=== PATIENT | male | born 1975 | race Caucasian/White ===

== ENCOUNTER → 2023-08-08 | Emergency (ER) | payer BC ==
[~2023-08-08] MED LIST: AZITHROMYCIN 250 MG TAB ONE
--- OUTSIDE RECORDS SUMMARY | 2023-08-08 22:07 | XMS REPORT | Continuity of Care Document ---
Author Name Unknown Address [address] [facility] [address] [place] [address] [facility] thconnect Address [address] [facility] [address] [place] [address] Care Team Providers Care Associate Professor Of Musicology Name Role Phone Jose Angel Cheema Attending Clinician [facility] Physician, No Primary or Family Admitting Clinic darrion Unavailable Payers Payer Name Policy Type Policy Number Effective Date Expirati on Date Source Allergies, Adverse Reactions, Alerts Allergy Name Allergy Type Status Severity Reaction(s) Onset Date Inactive Date Treating Clinician Comments Source [place]al[place] ne DA Active SV HIVES 03-17 00:00: 00 [facility] PCN DA Active SV HIVES 03-17 00:00: 00 [facility] Encounters Start Date/Time End Date/Time Encounter Type Admission Type Attending Clinicians Care Facility Care Department Encounter ID Source 2022-03-17 13:01:00 2022-03-17 14:51:00 Emergency EM Jose Angel Cheema [facility] ERLINDA [id number] 90 [facility] Results Test Description Test Time Test Comments Results Resul t Comments Source - XR HAND 3 + V LT 2022-03-17 13:28:00 [facility]: SHEA PIEDRA : 1975 Sex: M FAX: Truong Bridges NP [phone] [facility]: St: REG Patient Name: SHEA PIEDRA Unit No: [id number] EXAMS: CPT CODE: [id number] XR HAND 3 + [place] [id number] Left hand 3 views INDICATION: Trauma, pain LOCATION: T18 Nondisplaced slightly comminuted transverse fracture across the distal phalanx of the little finger. No radiopaque foreign body in soft tissues. Remainder of left hand unremarkable. at 1328 Reported and signed by: Bakari Goel D.O. CC: Truong Horner NP Dictated Date/Time: 03/17/2022 (1328)Technologist: Stephy Portillo Transcribed Date/Time: 03/17/2022 (1328) By: Ashli Orig Print D/T: S: 03/17/2022 (0533) [facility] NAME: SHEA PIEDRA [address] [place] [address] PHYS: [place] - Truong Horner [place], [place] [address] : 1975 AGE: 47 SEX: M LOC: [place] PHONE #: [phone] EXAM DATE: 03/17/2022 STATUS: REG ER FAX #: [phone] RAD NO: DC Dt: PAGE 1 Signed Report Notes Date/Time Note Provider Source 2022-03-17 14:03:00 [id number]:03:00 [facility] ([facility])emergency provider reportreport#:[id number] report status: signeddate:03/17/22 time: 1403 patient: shea piedra unit #: [id number]#: [id number] room/bed:age: 47 sex: m pcp phys: no primary or family physicianservice dt: 03/17/22 author: truong horner building rental manager * all edits or amendments must be made on the electronic/computer document * truong horner 03/17/22 1403:hpi-hand prob/inj free text hpi notesfree text hpi notespatient is a 47-year-old male that comes to the emergency room with chief complaint of left small finger injury. patient states he smashed it in a door of a gun safely but attempting to move the safe. reports laceration. patient states he think it is broken as well. tetanus shot up-to-date. generalconfirmed patient yespatient type new patientinitial greet date/time 03/17/22 1305 provider in triagehpi chief complaint injury/mvcpe general/const no acute distress presentationchief complaint finger injury lhx obtained from patientonset occurred just prior to arrivalsymptom duration since onsetprogression since onset unchangedcontext of onset home injurycaused by crushing injurytiming of trauma date of trauma 03/17/22location: left hand fingerquality painfulseverity: current pain level 7 out of 10associated withreports: painful extremity. exacerbated by palpationrelieved by nothing contextimmunization status up to date tetanusrecent healthcare no recent doctor visit, no recent hospitalizationsimilar sx previous no review of systems ros statementsall systems rev neg except as marked. basic review of systemsbasic ros eyes: no redness, ent: no sore throat, resp: no sob, cv: no chest pain, gi: no abd pain/vomiting, gu: no dysuria/frequency, hem: no bleeding/bruising,psych: nl thought content focused review of systemsconstitutionaldenies: chills, fatigue, fever. musculoskeletalreports: extremity pain. denies: neck pain. skinreports: laceration. denies: erythema. neurologicdenies: bladder dysfunction, bowel dysfunction, headache. past medical history - adultstated complaint cut finger bad bleedingallergiescoded allergies:mesalamine (from asacol) (severe, hives 03/17/22)uncoded allergies:pcn (severe, hives 03/17/22) calculated suicide risk (nurs) no riskreview of nursing notes unavailable at this timept reports no significant: past medical history, past surgical historysmoking status for patients 13 years old or older: unknown,if ever smoked physical exam vital signsvital signsfirst documented: result date time pulse ox 98 03/17 1305 b/p 157/97 03/17 1305 b/p mean 117 03/17 1305 o2 delivery room air 03/17 1305 temp 98.0 03/17 1305 pulse 108 03/17 1305 resp 18 03/17 1305 last documented: result date time pulse ox 100 03/17 1450 b/p 140/80 03/17 1450 b/p mean 100 03/17 1450 pulse 93 03/17 1450 resp 17 03/17 1450 o2 delivery room air 03/17 1305 temp 98.0 03/17 1305 review of vital signs reviewed basic physical exambasic pe head: atraumatic/nc, eyes: perrl, conj clear, ent: membranes moist, neck: supple, resp: no resp distress, cv: reg rate rhythm, abd: soft/non-tender, low ext: no gross abnl, skin: no rashes, warm/dry, neuro: alert oriented, neuro: gross movement nl, psych: nl thought content focused pegeneral/const general/const awake, alert appearance/presentation uncomfortable. ms wrist/hand wrist/hand no erythema, neurologic intact, vascular intact finger exam #1 finger name (l edison), tenderness present. interpretation diagnostics lab results interpretation imaging statementradiographic studies reviewed and considered in the medical decision-making. re-evaluation mdm free text mdm notesfree text mdm notespatient declined ancef injection, states he is scared of needles. gave keflex instead. patient also declined sutures. applied a xeroform dressing and a finger splint. will discharge with follow-up to hand. will discharge with painmedicine and antibiotics. all questions answered. return precautions given. patient agrees to plan of care. ed coursemedication(s) orderedmedication(s) ordered:anti-infective agents sig/avery start time last medication dose route stop time status admin cephalexin 500 mg x1ed sta 03/17 1348 dc 03/17 po 03/17 1349 1353 cefazolin sodium 1 gm x1ed sta 03/17 1305 dcd sterile water 2.5 ml im 03/17 1534 local anesthetics (parenteral) sig/avery start time last medication dose route stop time status admin lidocaine/epinephrine 10 ml once one 03/17 1315 dc 03/17 i-dermal 03/17 1316 1353 patient discharge departure vital signs/conditionvital signsfirst documented: result date time pulse ox 98 03/17 1305 b/p 157/97 03/17 1305 b/p mean 117 03/17 1305 o2 delivery room air 03/17 1305 temp 98.0 03/17 1305 pulse 108 03/17 1305 resp 18 03/17 1305 last documented: result date time pulse ox 100 03/17 1450 b/p 140/80 03/17 1450 b/p mean 100 03/17 1450 pulse 93 03/17 1450 resp 17 03/17 1450 o2 delivery room air 03/17 1305 temp 98.0 03/17 1305 all vital signs available at the time of this entry have been reviewed. clinical impressionclinical impressionprimary impression: finger fracturesecondary impressions: finger laceration disposition decisiondischarge )( discharged to home yes )( time 1438 )( date 03/17/22 discharge/care plancounseled regarding diagnosis, imaging studies, prescriptions, need for follow-up, when to return to ed(auto) prescriptionscurrent visit scriptstramadol (ultram) 50 mg po q6h prn prn acute pain tramadol (ultram) 50 mg po q6h prn prn acute pain #15 tabs cephalexin (keflex) 500 mg po q6h 10 days #40 caps patient instructions ed fracture, finger, opendeparture formswork/school excuse variable discharge notei have spoken with the patient and/or caregivers. i have explained the patient'scondition, diagnoses and treatment plan based on the information available to meat this time. i have answered the patient's and/or caregiver's questions and addressed any concerns. the patient and/or caregivers have as good an understanding of the patient's diagnosis, condition and treatment plan as can beexpected at this point. the vital signs have been stable. the patient's condition is stable and appropriate for discharge from the emergency department. the patient will pursue further outpatient evaluation with the primary care physician or other designated or consulting physician as outlined in the discharge instructions. the patient and/or caregivers are agreeable to this planof care and follow-up instructions have been explained in detail. the patient and/or caregivers have received these instructions in written format and have expressed an understanding of the discharge instructions. the patient and/or caregivers are aware that any significant change in condition or worsening of symptoms should prompt an immediate return to this or the closest emergency department or a call to 911. jose angel cheema 03/22/22 0022:re-evaluation mdm free text mdm notesfree text mdm notes pt seen and eval with midlevelagree with chart as documented unless noted otherwise by mept well appearing, non toxictaking po and ambulatory in edstable for dispo home with close f/upt agreeable with plan patient discharge departure discharge/care planreferralsprovider referral: angelique alcaraz md address: [address] [place] [address] [address] [place] [address] supervising physician note midlv/doc saw pt 2the pa/building rental manager has seen the patient and i have performed this visit along with the involvement of the pa/building rental manager. i agree with the pa/emd special education teacher findings and plan. i have performed all aspects of mdm as documented including: evaluation of the patient/patient's condition(s), review and analysis of available data, and determinationof risk of patient management decisions. electronically signed by truong horner np on 03/17/22 at 1454electronically signed by jose angel cheema do on 03/22/22 at 0022rpt #:[id number] of reportSaint [facility] department [id number]:03:00B.[id number] ilable for patient [id number]:54:18 [facility] 2022-03-17 13:06:00 [id number]:06:00 [facility] ([facility])emergency provider reportreport#:[id number] report status: signeddate:03/17/22 time: 1306 patient: shea piedra unit #: [id number]#: [id number] room/bed:age: 47 sex: m pcp phys: no primary or family physicianservice dt: 03/17/22 author: truong horner building rental manager * all edits or amendments must be made on the electronic/computer document * provider in triage - adult provider in triageinitial greet date/time 03/17/22 1305 greet notei have greeted and performed a focused rapid initial assessment of this patient.a comprehensive ed assessment and evaluation of the patient, analysis of all test results, and completion of the medical decision-making process will be conducted by additional ed providers. hpi chief complaint injury/mvcrosdenies: fever, chest pain. pe general/const no acute distress mse not completethe medical screening exam is not complete. further evaluation and/or treatment is required. the patient will be re-directed to the emergency department. pmh-provider in triagestated complaint cut finger bad bleedingallergiescoded allergies:mesalamine (from asacol) (severe, hives 03/17/22)uncoded allergies:pcn (severe, hives 03/17/22) home medicationsreported medicationsno known home medications electronically signed by truong horner np on 03/17/22 at 1403rpt #:[id number] of reportEDEmerwadley regional medical centercy department [id number]:06:00B.[id number] ilable for patient [id number]:03:21 [facility]
--- NOTE | 2023-08-08 22:49 | ER ---
Nurse's Notes [facility] Name: Yakov Coleman Age: 48 yrs Sex: Male : 1975 Arrival Date: 08/08/2023 Time: 22:02 Bed IW1 Private MD: Diagnosis: Acute serous otitis media, bilateral Presentation: 08/08 22:38 Chief complaint: Patient states: pt reports vertigo started last night, got better, but km8 still having sinus congestion and MANN; denies fever/chills. Coronavirus screen: Client denies travel out of the [place] in the last 14 days. Ebola Screen: No symptoms or risks identified at this time. Initial Sepsis Screen: Does the patient meet any 2 criteria? No. Patient's initial sepsis screen is negative. Does the patient have a suspected source of infection? No. Patient's initial sepsis screen is negative. Risk Assessment: Do you want to hurt yourself or someone else? Patient reports no desire to harm self or others. Onset of symptoms was August 07, 2023. 22:38 Method Of Arrival: Ambulatory km8 22:38 Acuity: JESSICA 4 km8 Triage Assessment: 22:41 General: Appears in no apparent distress. comfortable, Behavior is calm, cooperative, km8 appropriate for age. Pain: Complains of pain in MANN and sinus congestion Pain currently is 3 out of 10 on a pain scale. EENT: Reports nasal congestion. Neuro: Level of Consciousness is awake, alert, obeys commands, Oriented to person, place, time, situation, Reports headache. Cardiovascular: Denies chest pain, shortness of breath, Capillary refill < 3 seconds Patient's skin is warm and dry. Respiratory: Airway is patent Respiratory effort is even, unlabored, Respiratory pattern is regular, symmetrical, Breath sounds are clear bilaterally. GI: No signs and/or symptoms were reported involving the gastrointestinal system. : No signs and/or symptoms were reported regarding the genitourinary system. Derm: Skin is intact, is healthy with good turgor, Skin is dry, Skin is pink, warm \T\ dry. normal, Skin temperature is warm. Musculoskeletal: No signs and/or symptoms reported regarding the musculoskeletal system. Circulation, motion, and sensation intact. Range of motion: intact in all extremities. Historical: - Allergies: 22:41 Aspirin; km8 22:41 PENICILLINS; km8 - Home Meds: 22:41 None [Active]; km8 - PMHx: 22:41 None; km8 - PSHx: 22:41 back surgery; right ankle; km8 - Immunization history:: Client reports having NOT received the Covid vaccine. Flu vaccine is not up to date. - Social history:: Smoking status: Patient reports the use of cigarette tobacco products, denies chronic smoking, but will smoke occasionally, Patient uses alcohol, only on a social basis. Patient/guardian denies using street drugs. Screenin:43 [facility] ED Fall Risk Assessment (Adult) History of falling in the last 3 months, km8 including since admission No falls in past 3 months (0 pts) Confusion or Disorientation No (0 pts) Intoxicated or Sedated No (0 pts) Impaired Gait No (0 pts) Mobility Assist Device Used No (0 pt) Altered Elimination No (0 pt) Score/Fall Risk Level 0 - 2 = Low Risk Oriented to surroundings, Maintained a safe environment, Educated pt \T\ family on fall prevention, incl call for assistance when getting out of bed, Assessed \T\ reinforced patient's understanding of fall precautions. Abuse screen: Denies threats or abuse. Denies injuries from another. Nutritional screening: No deficits noted. Tuberculosis screening: No symptoms or risk factors identified. Assessment: 22:45 General: see triage notes/assessment. km8 Vital Signs: 22:38 BP 144 / 93; Pulse 73; Resp 16; Temp 98.1(O); Pulse Ox 100% on R/A; Weight 95.25 kg km8 (R); Height 6 ft. 0 in. (R); Pain 3/10; 22:38 Body Mass Index 28.48 (95.25 kg, 182.88 cm) km8 22:38 Pain Scale: Adult km8 ED Course: 22:30 Patient arrived in ED. km8 22:30 Raheel Rios MD is Attending Physician. ec2 22:41 Triage completed. km8 22:41 Arm band placed on right wrist. km8 22:43 Patient has correct armband on for positive identification. km8 22:43 No provider procedures requiring assistance completed. Patient maintains SpO2 km8 saturation greater than 95% on room air. 22:46 Patient did not have IV access during this emergency room visit. km8 23:00 Provided Education on: d/c teaching. km8 Administered Medications: 22:59 Drug: AZITHromycin PO 500 mg PO once Route: PO; km8 22:59 Follow up: Response: Medication administered at discharge. km8 Medication: 22:43 VIS not applicable for this client. km8 Outcome: 22:49 Discharge ordered by . ec2 23:00 Discharged to home ambulatory, km8 23:00 Condition: good 23:00 Discharge instructions given to patient, Instructed on discharge instructions, follow up and referral plans. medication usage, Demonstrated understanding of instructions, follow-up care, medications, Prescriptions given X 1, 23:00 Patient left the ED. km8 Signatures: Raheel Rios MD MD 2 Alanis Sierra RN RN km8 Corrections: (The following items were deleted from the chart) 22:42 22:41 Allergies: No Known Allergies; km8 km8 22:42 22:41 PSHx: None; km8 km8
--- NOTE | 2023-08-08 22:49 | EDPHYS ---
Physician Documentation [facility] Name: Yakov Coleman Age: 48 yrs Sex: Male : 1975 Arrival Date: 08/08/2023 Time: 22:02 Bed IW1 Private MD: ED Physician Raheel Rios HPI: 08/08 22:50 This 48 yrs old Male presents to ER via Ambulatory with complaints of ec2 Congestion, Cough, Vertigo, Headache. 22:50 Patient arrives today for evaluation of cough and cold symptoms as well as vertigo. ec2 Patient reports that he has history of ear infections as well as vertigo. 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 States that the vertigo has since resolved, states that he has congestion, denies ear pain. Denies any difficulty breathing, denies fevers or chills or nausea or vomiting.. Historical: - Allergies: 22:41 Aspirin; km8 22:41 PENICILLINS; km8 - Home Meds: 22:41 None [Active]; km8 - PMHx: 22:41 None; km8 - PSHx: 22:41 back surgery; right ankle; km8 - Immunization history:: Client reports having NOT received the Covid vaccine. Flu vaccine is not up to date. - Social history:: Smoking status: Patient reports the use of cigarette tobacco products, denies chronic smoking, but will smoke occasionally, Patient uses alcohol, only on a social basis. Patient/guardian denies using street drugs. ROS: 22:51 Constitutional: as per hpi ec2 Exam: 22:51 Constitutional: GEN: NAD Head: atraumatic Eyes: EOMI Ears: External ears are normal. ec2 Bilateral TMs with serous fluid noted, erythema along the membrane noted as well. CV: regular rate LUNGS: no respiratory distress ABD: non-distended SKIN: no evidence of rashes MSK: no evidence of trauma NEURO: moves all extremities equally Vital Signs: 22:38 BP 144 / 93; Pulse 73; Resp 16; Temp 98.1(O); Pulse Ox 100% on R/A; Weight 95.25 kg km8 (R); Height 6 ft. 0 in. (R); Pain 3/10; 22:38 Body Mass Index 28.48 (95.25 kg, 182.88 cm) [facility] 22:38 Pain Scale: Adult [facility] MDM: 22:30 Patient medically screened. ec2 22:51 Data reviewed: vital signs. ED course: Patient arrives today due to concern for vertigo ec2 and URI symptoms. Examination remarkable for otitis media. Will start on antibiotics, have him follow-up with a primary care doctor. Consider viral swabs as well however this would not be management changing. Additionally patient is systemically well-appearing with reassuring vital signs, do not feel lab work such as CBC or BMP would be beneficial in this setting.. Administered Medications: 22:59 Drug: AZITHromycin PO 500 mg PO once Route: PO; [facility] 22:59 Follow up: Response: Medication administered at discharge. [facility] Disposition Summary: 08/08/23 22:49 Discharge Ordered Condition: Stable ec2 Diagnosis - Acute serous otitis media, bilateral ec2 Followup: ec2 - With: Private Physician - When: - Reason: Recheck today's complaints Discharge Instructions: - Discharge Summary Sheet ec2 - Otitis Media, Adult, Qwkg-[id number] ec2 - Form - Return To Work [facility] Forms: - Medication Reconciliation Form ec2 - Thank You Letter ec2 - Antibiotic Education ec2 - Prescription Opioid Use ec2 - Patient Portal Instructions ec2 - Leadership Thank You Letter ec2 Prescriptions: - azithromycin 250 mg Oral tablet - take 1 tablet ORAL route once daily for 4 days; 4 tablet; Refills: 0, Product ec2 Selection Permitted Signatures: Raheel Rios MD MD ec2 Alanis Sierra RN RN [facility] Corrections: (The following items were deleted from the chart) 22:42 22:41 Allergies: No Known Allergies; [place] [id number] 22:42 22:41 PSHx: None; [place] [id number]
[2023-08-09 05:46] VITALS: BP 144/93; TEMP 98.1; O2SAT 100
== END ==
LOC: ER 22:02
DX: H65.03 Acute serous otitis media, bilateral (principal); Z88.6 Allergy status to analgesic agent; Z88.0 Allergy status to penicillin

== ENCOUNTER 2023-12-04 10:23 | Emergency (ER) | payer BC ==
--- OUTSIDE RECORDS SUMMARY | 2023-12-04 10:25 | XMS REPORT | Continuity of Care Document ---
Author Name Unknown Address [address] [place] [address] [facility] thconnect Address [address] [place] [address] Care Team Providers Care Cigarette And Filter Chief Inspector Name Role Phone Jose Angel Cheema Attending Clinician [facility] Physician, No Primary or Family Admitting Clinic darrion Unavailable Payers Payer Name Policy Type Policy Number Effective Date Expirati on Date Source Allergies, Adverse Reactions, Alerts Allergy Name Allergy Type Status Severity Reaction(s) Onset Date Inactive Date Treating Clinician Comments Source [place] ne DA Active SV HIVES 03-17 00:00: 00 [facility] PCN DA Active SV HIVES 03-17 00:00: 00 [facility] Encounters Start Date/Time End Date/Time Encounter Type Admission Type Attending Clinicians Care Facility Care Department Encounter ID Source 2022-03-17 13:01:00 2022-03-17 14:51:00 Emergency EM Jose Angel Cheema [facility] ERLINDA [id number] 90 [facility] Results Test Description Test Time Test Comments Results Resul t Comments Source - XR HAND 3 + V LT 2022-03-17 13:28:[address] [facility]: SHEA PIEDRA : 1975 Sex: M FAX: Truong Bridges NP [phone] [place]: St: REG Patient Name: SHEA PIEDRA Unit No: [id number] EXAMS: CPT CODE: [id number] XR HAND 3 + V LT [id number] Left hand 3 views INDICATION: Trauma, pain [...] By: Ashli Orig Print D/T: S: 03/17/2022 ([id number]) [facility] [place] NAME: SHEA PIEDRA [address] [place] [address] PHYS: [place] - Truong Horner [place], [place] [address] : 1975 AGE: 47 SEX: M LOC: [place] PHONE #: [phone] EXAM DATE: 03/17/2022 STATUS: REG ER FAX #: [phone] RAD NO: DC Dt: PAGE 1 Signed Report Notes Date/Time Note Provider Source 2022-03-17 14:03:00 [id number]:03:00 [facility]emergency provider reportreport#:[id number] report status: signeddate:03/17/22 time: 1403 patient: shea piedra unit #: [id number]#: [id number] room/bed:age: 47 sex: m pcp phys: no primary or family physicianservice dt: 03/17/22 author: truong horner hospice office coordinator * all edits or amendments must be [...] discharge/care planreferralsprovider referral: angelique alcaraz md address: [address] [place] [address] [address] [place] [address] supervising physician note midlv/doc saw pt 2the pa/hospice office coordinator has seen the patient and i have performed this visit along with the involvement of the pa/hospice office coordinator. i agree with the pa/dealer development manager findings and plan. i have performed all aspects of mdm as documented including: evaluation of the patient/patient's condition(s), review and analysis of available data, and determinationof risk of patient management decisions. electronically signed by truong horner np on 03/17/22 at 1454electronically signed by jose angel cheema do on 03/22/22 at 0022rpt #:[id number] of [facility] [id number]:03:00B.[id number] ilable for patient [id number]:54:18 [facility] 2022-03-17 13:06:00 [id number]:06:00 [facility]emergency provider reportreport#:[id number] report status: signeddate:03/17/22 time: 1306 patient: shea piedra unit #: [id number]#: [id number] room/bed:age: 47 sex: m pcp phys: no primary or family physicianservice dt: 03/17/22 author: truong horner hospice office coordinator * all edits or amendments must be [...] truong horner np on 03/17/22 at 1403rpt #:[id number] of reportEDEmerfive rivers medical centercy department [id number]:06:00B.[id number] ilable for patient [id number]:03:21 [facility]
[2023-12-04] MEDS ORDERED: NA CHLORIDE 0.9% 1,000 ML ONE (10:47)
[2023-12-04] MEDS ORDERED: MAGNESIUM SULFATE 1 gm IVPB 1 GM/100 ML BAG IV ONE (10:47)
[2023-12-04 11:03] LABS: Absolute Basophils 0.1 K/uL (0-0.5); Absolute Eosinophils 0.2 K/uL (0-0.5); Absolute Lymphocytes (CBC) 2.9 K/uL (0.7-4.9); Absolute Monocytes 0.9 K/uL (0.1-1.3); Absolute Neutrophil 6.2 K/uL (1.8-8.0); Basophils % 0.8 % (0-1.3); Hematocrit 46.5 % (39.6-49.0); Hemoglobin 15.4 g/dL (13.6-17.9); Lymphocytes % 28.2 % (15.3-44.8); MCH 31.5 pg (27.0-35.0); MCHC 33.2 g/dL (32.0-36.0); MCV 94.7 fL (80-100); MPV 7.8 fL (7.6-11.3); Monocytes % 8.9 % (3.3-12.3); Neutrophils % 60.1 % (41.7-73.7); PT Prothrombin Time 11.9 SECONDS (9.5-12.5); Platelets 276 thou/uL (152-406); Protime INR 1.08; Red Cell Distribution Width 13.3 % (12.1-15.2)
[2023-12-04 11:35] LABS: ALT/SGPT 37 U/L (16-61); AST/SGOT 14 U/L (15-37); Albumin 3.8 g/dL (3.4-5.0); Alkaline Phosphatase 81 U/L (45-117); Anion Gap 7.7 mEq/L (5.0-15.0); BUN Blood Urea Nitrogen 16 mg/dL (7-18); Bicarbonate 26 mEq/L (21-32); Bilirubin Total 0.4 mg/dL (0.2-1.0); Globulin 3.7 g/dL (2.3-3.5); Glomerular Filtration Rate 90 ml/min (=/>90); Glucose Level 109 mg/dL (74-106); Magnesium 1.9 mg/dL (1.6-2.4); NT PRO-BNP 23 pg/mL (<125); Potassium 3.7 mEq/L (3.5-5.1); Protein, Total 7.5 g/dL (6.4-8.2); Sodium Level 136 mEq/L (136-145)
[2023-12-04 11:37] LABS: Bilirubin Direct < 0.2 mg/dL (0-0.2); Bilirubin Indirect, Calculated 0.2 mg/dL (0.2-0.8)
--- NOTE | 2023-12-04 11:45 | ER ---
Nurse's Notes [facility] Name: Yakov Coleman Age: 48 yrs Sex: Male : 1975 Arrival Date: 12/04/2023 Time: 10:23 Bed 14 Private MD: Diagnosis: Palpitations Presentation: 12/03 10:42 Chief complaint: Patient states: palpitations since yesterday , has had similar iw symptoms in past night tit usually does not last this long, comes and goes. Coronavirus screen: At this time, the client does not indicate any symptoms associated with coronavirus-19. Ebola Screen: Patient negative for fever greater than or equal to 101.5 degrees Fahrenheit, and additional compatible Ebola Virus Disease symptoms Patient denies exposure to infectious person. Patient denies travel to an Ebola-affected area in the 21 days before illness onset. No symptoms or risks identified at this time. Initial Sepsis Screen: Does the patient meet any 2 criteria? No. Patient's initial sepsis screen is negative. Does the patient have a suspected source of infection? No. Patient's initial sepsis screen is negative. Risk Assessment: Do you want to hurt yourself or someone else? Patient reports no desire to harm self or others. Onset of symptoms was December 03, 2023. 10:42 Method Of Arrival: Ambulatory iw 10:42 Acuity: JESSICA 3 iw Historical: - Allergies: 10:43 Aspirin; iw 10:43 PENICILLINS; iw - Home Meds: 10:43 None [Active]; iw - PMHx: 10:43 None; iw - PSHx: 10:43 back surgery; Right Ankle; iw - Immunization history:: Adult Immunizations up to date. - Infectious Disease History:: Denies. CDIFF, C. Auris, ESBL, MRSA (w/in 1 year), VRE (w/in 1 year), TB, . - Social history:: Smoking status: Patient reports the use of cigarette tobacco products, denies chronic smoking, but will smoke occasionally. Screenin:40 [facility] ED Fall Risk Assessment (Adult) History of falling in the last 3 months, cp4 including since admission No falls in past 3 months (0 pts) Confusion or Disorientation No (0 pts) Intoxicated or Sedated No (0 pts) Impaired Gait No (0 pts). Abuse screen: Denies threats or abuse. Nutritional screening: No deficits noted. Tuberculosis screening: No symptoms or risk factors identified. Assessment: 10:40 General: Appears uncomfortable, Behavior is calm, cooperative, appropriate for age. cp4 Pain: Denies pain. Cardiovascular: Reports palpitations, Rhythm is sinus rhythm. 11:53 Reassessment: Discharge pending orthostatics. cp4 12:04 Reassessment: Pending dispo. Physician has not spoken to patient. cp4 Vital Signs: 10:45 BP 130 / 75; Pulse 70; Resp 16; Temp 98.2; Pulse Ox 98% on R/A; Weight 95.25 kg; Height iw 5 ft. 11 in. ; Pain 0/10; 12:04 BP 122 / 74 Supine; Pulse 63; cp4 12:04 BP 129 / 81 Sitting; Pulse 64; cp4 12:04 BP 119 / 84 Standing; Pulse 66; cp4 10:45 Body Mass Index 29.29 (95.25 kg, 180.34 cm) iw 10:45 Pain Scale: Adult iw ED Course: 10:26 Patient arrived in ED. im 10:27 Crow Garcia MD is Attending Physician. isaias 10:28 Jose Lopez, RN is Primary Nurse. bp 10:39 TSH Sent. cp4 10:39 Basic Metabolic Panel Sent. cp4 10:39 CBC with Diff Sent. cp4 10:39 LFT's Sent. cp4 10:39 Magnesium Sent. cp4 10:39 NT PRO-BNP Sent. cp4 10:40 PT-INR Sent. cp4 10:40 Troponin HS Sent. cp4 10:40 No provider procedures requiring assistance completed. Initial lab(s) drawn, by nm, cp4 sent to lab. Inserted saline lock: 20 gauge in right antecubital area, using aseptic technique. Blood collected. 10:40 Bed in low position. Call light in reach. Side rails up X2. Provided Education on:. cp4 10:43 Triage completed. iw 11:45 Donny Garcia MD is Referral Physician. isaias 11:53 XRAY Chest (1 view) In Process Unspecified. EDMS 12:19 intact, bleeding controlled, No redness/swelling at site. Pressure dressing applied. cp4 Administered Medications: 10:39 Not Given (Patient allergyy): aspirinchewable tablet 81 mg PO once cp4 10:57 Drug: Magnesium Sulfate IVPB 1 grams IVPB once over 1 hrs Route: IVPB; Infused Over: 1 cp4 hrs; Site: right antecubital; :57 Drug: NS 0.9% IV 1000 ml IV at 1 bolus Per protocol; 1000 mL bolus Route: IV; Rate: 1 cp4 bolus; Site: right antecubital; 12:08 Drug: ToPROL XL PO 25 mg PO once Route: PO; cp4 12:08 Follow up: Response: No adverse reaction cp4 Medication: 10:40 VIS not applicable for this client. cp4 Outcome: 11:45 Discharge ordered by . isaias 12:19 Discharged to home ambulatory, cp4 12:19 Condition: stable 12:19 Discharge instructions given to patient, Instructed on discharge instructions, follow up and referral plans. medication usage, Demonstrated understanding of instructions, follow-up care, medications, Prescriptions given X 1, 12:19 Patient left the ED. cp4 Signatures: Dispatcher [employer] EDMS Crow Garcia MD MD cha Williams, Irene, RN RN iw Peltier, Brian, RN RN bp Mendoza, Itzel im Potter, Christina cp4
--- NOTE | 2023-12-04 11:45 | EDPHYS ---
Physician Documentation [facility] Name: Yakov Coleman Age: 48 yrs Sex: Male : 1975 Arrival Date: 12/04/2023 Time: 10:23 Bed 14 Private MD: ED Physician Crow Garcia HPI: 12/03 11:17 This 48 yrs old Male presents to ER via Ambulatory with complaints of isaias Palpitations. 11:17 The patient presents with a history of heart racing, heart skipping beats. Context: The isaias symptoms occur with light activity. Onset: The symptoms/episode began/occurred just prior to arrival, 3 week(s) ago. Duration: The patient or guardian reports a single episode, that is now resolved, that lasted an unknown period of time. Modifying factors: The symptoms are aggravated by nothing. The symptoms are alleviated by nothing. Associated signs and symptoms: The patient has no apparent associated signs or symptoms. Severity of symptoms: At their worst the symptoms were mild in the emergency department the symptoms have improved mildly. The patient has experienced similar episodes in the past, several times. Historical: - Allergies: 10:43 Aspirin; iw 10:43 PENICILLINS; iw - Home Meds: 10:43 None [Active]; iw - PMHx: 10:43 None; iw - PSHx: 10:43 back surgery; Right Ankle; iw - Immunization history:: Adult Immunizations up to date. - Infectious Disease History:: Denies. CDIFF, C. Auris, ESBL, MRSA (w/in 1 year), VRE (w/in 1 year), TB, . - Social history:: Smoking status: Patient reports the use of cigarette tobacco products, denies chronic smoking, but will smoke occasionally. ROS: 11:19 Constitutional: Negative for fever, chills, and weight loss, Eyes: Negative for injury, isaias pain, redness, and discharge, ENT: Negative for injury, pain, and discharge, Neck: Negative for injury, pain, and swelling, Respiratory: Negative for shortness of breath, cough, wheezing, and pleuritic chest pain, Abdomen/GI: Negative for abdominal pain, nausea, vomiting, diarrhea, and constipation, Back: Negative for injury and pain, : Negative for injury, bleeding, discharge, and swelling, MS/Extremity: Negative for injury and deformity, Skin: Negative for injury, rash, and discoloration, Neuro: Negative for headache, weakness, numbness, tingling, and seizure, Psych: Negative for depression, anxiety, suicide ideation, homicidal ideation, and hallucinations, Allergy/Immunology: Negative for hives, rash, and allergies, Endocrine: Negative for neck swelling, polydipsia, polyuria, polyphagia, and marked weight changes, Hematologic/Lymphatic: Negative for swollen nodes, abnormal bleeding, and unusual bruising, 11:19 Cardiovascular: Positive for palpitations, Exam: 11:19 Constitutional: This is a well developed, well nourished patient who is awake, alert, isaias and in no acute distress. Head/Face: Normocephalic, atraumatic. Eyes: Pupils equal round and reactive to light, extra-ocular motions intact. Lids and lashes normal. Conjunctiva and sclera are non-icteric and not injected. Cornea within normal limits. Periorbital areas with no swelling, redness, or edema. ENT: Nares patent. No nasal discharge, no septal abnormalities noted. Tympanic membranes are normal and external auditory canals are clear. Oropharynx with no redness, swelling, or masses, exudates, or evidence of obstruction, uvula midline. Mucous membranes moist. Neck: Trachea midline, no thyromegaly or masses palpated, and no cervical lymphadenopathy. Supple, full range of motion without nuchal rigidity, or vertebral point tenderness. No Meningismus. Chest/axilla: Normal chest wall appearance and motion. Nontender with no deformity. No lesions are appreciated. Cardiovascular: Regular rate and rhythm with a normal S1 and S2. No gallops, murmurs, or rubs. Normal PMI, no JVD. No pulse deficits. Respiratory: Lungs have equal breath sounds bilaterally, clear to auscultation and percussion. No rales, rhonchi or wheezes noted. No increased work of breathing, no retractions or nasal flaring. Abdomen/GI: Soft, non-tender, with normal bowel sounds. No distension or tympany. No guarding or rebound. No evidence of tenderness throughout. Back: No spinal tenderness. No costovertebral tenderness. Full range of motion. Male : Normal genitalia with no discharge or lesions. Skin: Warm, dry with normal turgor. Normal color with no rashes, no lesions, and no evidence of cellulitis. MS/ Extremity: Pulses equal, no cyanosis. Neurovascular intact. Full, normal range of motion. Neuro: Awake and alert, GCS 15, oriented to person, place, time, and situation. Cranial nerves II-XII grossly intact. Motor strength 5/5 in all extremities. Sensory grossly intact. Cerebellar exam normal. Normal gait. Psych: Awake, alert, with orientation to person, place and time. Behavior, mood, and affect are within normal limits. 11:19 ECG was reviewed by the Attending Physician. Vital Signs: 10:45 BP 130 / 75; Pulse 70; Resp 16; Temp 98.2; Pulse Ox 98% on R/A; Weight 95.25 kg; Height iw 5 ft. 11 in. ; Pain 0/10; 12:04 BP 122 / 74 Supine; Pulse 63; cp4 12:04 BP 129 / 81 Sitting; Pulse 64; cp4 12:04 BP 119 / 84 Standing; Pulse 66; cp4 10:45 Body Mass Index 29.29 (95.25 kg, 180.34 cm) iw 10:45 Pain Scale: Adult iw MDM: 10:28 Patient medically screened. isaias 11:20 SUJATA Risk Score: Total Score = 0. Differential diagnosis: arrythmia, dehydration, isaias stress disorder. Differential Diagnosis altered mental status, sepsis, flu. Data reviewed: vital signs, nurses notes, EMS record, lab test result(s), EKG, radiologic studies, plain films. Consideration of Admission/Observation Escalation of care including admission/observation considered. I considered the following discharge prescriptions or medication management in the emergency department Medications were administered in the Emergency Department. See MAR. Independent interpretation of the following test(s) in the Emergency Department EKG: See my EKG interpretation above. Test considered but Not performed: Ultrasound no 2 d echo. Counseling: I had a detailed discussion with the patient and/or guardian regarding the historical points, exam findings, and any diagnostic results supporting the discharge/admit diagnosis, lab results, radiology results, the need for outpatient follow up, for definitive care, a patient account liaison, a family practitioner. 12/03 10:29 Order name: Basic Metabolic Panel; Complete Time: 11:42 [facility] 12/03 10:29 Order name: CBC with Diff; Complete Time: 11:42 [facility] 12/03 10:29 Order name: LFT's; Complete Time: 11:42 12/03 10:29 Order name: Magnesium; Complete Time: 11:42 12/03 10:29 Order name: NT PRO-BNP; Complete Time: 11:42 12/03 10:29 Order name: PT-INR; Complete Time: 11:42 12/03 10:29 Order name: Troponin HS; Complete Time: 11:42 12/03 10:29 Order name: TSH; Complete Time: 11:42 12/03 10:29 Order name: XRAY Chest (1 view) 12/03 10:29 Order name: EKG; Complete Time: 10:30 12/03 10:29 Order name: Cardiac monitoring; Complete Time: 10:40 12/03 10:29 Order name: EKG - Nurse/Tech; Complete Time: 10:40 12/03 10:29 Order name: IV Saline Lock; Complete Time: 10:40 12/03 10:29 Order name: Labs collected and sent; Complete Time: 10:40 12/03 10:29 Order name: O2 Per Protocol; Complete Time: 10:40 12/03 10:29 Order name: O2 Sat Monitoring; Complete Time: 10:40 12/03 11:44 Order name: Orthostatics; Complete Time: 12:03 [facility] EC:19 Rate is 70 beats/min. Rhythm is regular. QRS [place] is Normal. NM interval is normal. QRS isaias interval is normal. QT interval is normal. No Q waves. T waves are Normal. No ST changes noted. Clinical impression: Normal ECG and No evidence of ischemia. Interpreted by me. Reviewed by me. Administered Medications: 10:39 Not Given (Patient allergyy): aspirinchewable tablet 81 mg PO once cp4 10:57 Drug: Magnesium Sulfate IVPB 1 grams IVPB once over 1 hrs Route: IVPB; Infused Over: 1 cp4 hrs; Site: right antecubital; 10:57 Drug: NS 0.9% IV 1000 ml IV at 1 bolus Per protocol; 1000 mL bolus Route: IV; Rate: 1 cp4 bolus; Site: right antecubital; 12:08 Drug: ToPROL XL PO 25 mg PO once Route: PO; cp4 12:08 Follow up: Response: No adverse reaction cp4 Disposition Summary: 12/04/23 11:45 Discharge Ordered Notes: Location: Home isaias Problem: new isaias Symptoms: have improved isaias Condition: Stable isaias Diagnosis - Palpitations isaias Followup: isaias - With: Private Physician - When: 2 - 3 days - Reason: Recheck today's complaints, Continuance of care, Re-evaluation by your physician Followup: isaias - With: Donny Garcia MD - When: 2 - 3 days - Reason: Recheck today's complaints, Continuance of care, Re-evaluation by your physician Discharge Instructions: - Discharge Summary Sheet isaias - Palpitations isaias - Palpitations, [id number] isaias - Caffeine Use Disorder isaias Forms: - Medication Reconciliation Form isaias - Antibiotic Education isaias - Prescription Opioid Use isaias - Patient Portal Instructions isaias - Leadership Thank You Letter [facility] Prescriptions: - Toprol XL 25 mg Oral Tablet - take 1 tablet ORAL route once daily; 20 tablet; Refills: 0, Product Selection isaias Permitted Signatures: Dispatcher [employer] Crow De La Rosa MD MD cha Williams, Irene, RN RN Yola Pantoja cp4
[2023-12-04] MEDS ORDERED: METOPROLOL XL 50 MG TAB PO ONE (11:55)
--- NOTE | 2023-12-04 12:12 | RAD REPORT ---
EXAM DESCRIPTION: Jose Single View12/04/2023 12:00 pm CLINICAL HISTORY: Palpitations COMPARISON: none FINDINGS: The lungs appear clear of acute infiltrate. The heart is normal size IMPRESSION: No acute abnormalities displayed
[2023-12-04 19:02] VITALS: BP 119/84; TEMP 98.2; O2SAT 98
== END 2023-12-04 12:19 | disposition home or self-care (01) ==
LOC: ER 10:23
DX: R00.2 Palpitations (principal); F17.210 Nicotine dependence, cigarettes, uncomplicated; Z88.0 Allergy status to penicillin; Z88.6 Allergy status to analgesic agent
CPT/HCPCS: 93005; 85025; 80048; 36415; 83735; 85610; 80076; 84443; 84484; 83880; 71045; 96374; 99284; J3475; J7030